=== PATIENT | female | born 1945 | race Two or more races ===

== ENCOUNTER → 2020-12-19 | Outpatient (CLI) | payer MEDICARE, MEDICAID ==
[~2020-12-19] MED LIST: APIX5TAB PO; ATOR-2 PO; ATOR80TA PO; FLUO10TA PO; FOLI0.8T7 PO; GABA100C PO; HYDR-3342 PO; OMEP-110 PO; OXYC5TAB98 PO; PIOG15TA66 PO; PIOG15TA69 PO; SILV50CR TP; TRAM50TA2 PO; WARF2.5T32 PO
[2020-12-19 09:12] LABS: BASOPHILS % (AUTO) 1 % (0-1); EOSINOPHILS % (AUTO) 3 % (1-7); LYMPHOCYTES % (AUTO) 28 % (22-44); MEAN CORPUSCULAR HEMOGLOBIN 32.5 pg (27.0-34.8); MEAN CORPUSCULAR HGB CONC 33.8 g/dL (32.4-35.8); MEAN PLATELET VOLUME 7.8 fL (7.4-10.4); MONOCYTES % (AUTO) 11 % (2-9); NEUTROPHILS % (AUTO) 57 % (42-75); PLATELET COUNT 191 x10^3/uL (130-400); RED BLOOD COUNT 3.09 x10^6/uL (3.82-5.3); RED CELL DISTRIBUTION WIDTH 14.4 % (9.6-15.2)
[2020-12-19 09:22] LABS: INTERNATIONAL NORMALIZED RATIO 1.04 (0.93-1.1); PROTHROMBIN TIME 11.1 Seconds (9.6-11.5)
[2020-12-19 10:02] LABS: ALBUMIN 3.8 g/dL (3.4-5.0); ANION GAP 7 mmol/L (5-15); CALCIUM 8.6 mg/dL (8.5-10.1); CHLORIDE 98 mmol/L (98-107)
[2020-12-19 10:15] LABS: ALANINE AMINOTRANSFERASE 23 U/L (12-78); ALKALINE PHOSPHATASE 203 U/L (45-117); BILIRUBIN,TOTAL 0.5 mg/dL (0.2-1.0); CREATININE 4.01 mg/dL (0.55-1.02); TOTAL PROTEIN 7.5 g/dL (6.4-8.2)
== END | disposition home or self-care (01) ==
LOC: STAR 07:44 → MERGE 08:00
PROVIDERS: ATTEND Surgery
DX: Z01.818 Encounter for other preprocedural examination (principal); Z01.812 Encounter for preprocedural laboratory examination; I21.09 ST elevation (STEMI) myocardial infarction involving other coronary artery of anterior wall; Z20.822 Contact with and (suspected) exposure to COVID-19
CPT/HCPCS: 36415; 80053; 85025; 85610; 85730; 93005; U0003; U0005

== ENCOUNTER 2020-12-23 09:53 | Day surgery (SDC) | payer MEDICARE, MEDICAID ==
[~2020-12-23] VITALS: Ht 152.4 cm; Wt 61.4 kg
[2020-12-23 10:41] VITALS: BP 136/74
[2020-12-23] MEDS ORDERED: SODIUM CHLORIDE 0.9% 1,000 ML IV SCH (11:00)
[2020-12-23] MEDS ORDERED: CHLORHEXIDINE 15 ML UDC PO ONE (11:00)
[2020-12-23 11:38] LABS: ANION GAP 7 mmol/L (5-15); CALCIUM 8.7 mg/dL (8.5-10.1); CHLORIDE 99 mmol/L (98-107); CREATININE 2.95 mg/dL (0.55-1.02)
[2020-12-23] MEDS ORDERED: FENTANYL PF 100 MCG/2ML ONE (11:40)
[2020-12-23] MEDS ORDERED: MIDAZOLAM 1 MG/ML, 2ML ONE (11:40)
[2020-12-23] MEDS ORDERED: EPINEPHRINE 1 MG/ML, 1ML ONE (12:29)
[2020-12-23] MEDS ORDERED: BUPIVACAINE/PF 0.5% ONE (12:29)
[2020-12-23] MEDS ORDERED: LABETALOL 5MG/ML, 20ML IV PRN (14:30)
[2020-12-23] MEDS ORDERED: hydrALAzine 20 MG/ML, 1ML IV PRN (14:30)
[2020-12-23] MEDS ORDERED: ONDANSETRON 2MG/ML, 2ML IVPush PRN (14:30)
[2020-12-23] MEDS ORDERED: FENTANYL PF 100 MCG/2ML IV PRN (14:30)
[2020-12-23] MEDS ORDERED: ACETAMINOPHEN 325 MG TABLET PO PRN (14:30)
[2020-12-23] MEDS ORDERED: HYDROmorphone 1 MG/ML, 1ML INJ IVPush PRN (14:30)
== END 2020-12-23 15:15 | disposition home or self-care (01) ==
LOC: OUT 09:53
PROVIDERS: ATTEND Surgery
DX: I12.0 Hypertensive chronic kidney disease with stage 5 chronic kidney disease or end stage renal disease (principal); N18.6 End stage renal disease; E78.5 Hyperlipidemia, unspecified; Z79.01 Long term (current) use of anticoagulants; Z79.891 Long term (current) use of opiate analgesic; Z79.899 Other long term (current) drug therapy; Z86.718 Personal history of other venous thrombosis and embolism; Z87.891 Personal history of nicotine dependence; Z99.2 Dependence on renal dialysis; Z98.890 Other specified postprocedural states; Z82.49 Family history of ischemic heart disease and other diseases of the circulatory system
CPT/HCPCS: 49324; 80048; 82962; C1750; J0171; J2250; J3010; J7030

== ENCOUNTER 2021-02-24 10:56 | Outpatient (CLI) | payer MEDICARE, MEDICAID ==
[~2021-02-24 10:56] MED LIST changes: +REGADENOSON 0.4 MG/5 ML SYRINGE ONE
== END 2021-02-24 23:59 | disposition home or self-care (01) ==
LOC: CFH 10:56
PROVIDERS: ATTEND Nurse Practitioner Family
DX: I65.23 Occlusion and stenosis of bilateral carotid arteries (principal); I21.29 ST elevation (STEMI) myocardial infarction involving other sites; I25.9 Chronic ischemic heart disease, unspecified; I25.10 Atherosclerotic heart disease of native coronary artery without angina pectoris
CPT/HCPCS: 78452; 93017; 93880; A9502; J2785

== ENCOUNTER 2021-03-08 05:49 | Observation (INO) | payer MEDICARE, MEDICAID ==
[~2021-03-08] VITALS: Ht 154.9 cm; Wt 68.8 kg
[~2021-03-08 05:49] MED LIST changes: -REGADENOSON 0.4 MG/5 ML SYRINGE ONE
[2021-03-08 06:16] VITALS: BP 150/70
[2021-03-08] MEDS ORDERED: CHLORHEXIDINE 15 ML UDC PO ONE (06:30)
[2021-03-08] MEDS ORDERED: SODIUM CHLORIDE 0.9% 1,000 ML IV SCH (06:30)
[2021-03-08] MEDS ORDERED: ASPI-963 PO (06:39)
[2021-03-08] MEDS ORDERED: SEMA0.25 SQ (06:46)
[2021-03-08 06:57] LABS: BASOPHILS % (AUTO) 3 % (0-1); EOSINOPHILS % (AUTO) 7 % (1-7); LYMPHOCYTES % (AUTO) 24 % (22-44); MEAN CORPUSCULAR HEMOGLOBIN 32.3 pg (27.0-34.8); MEAN CORPUSCULAR HGB CONC 34.4 g/dL (32.4-35.8); MEAN PLATELET VOLUME 7.3 fL (7.4-10.4); MONOCYTES % (AUTO) 10 % (2-9); NEUTROPHILS % (AUTO) 56 % (42-75); PLATELET COUNT 253 x10^3/uL (130-400); RED BLOOD COUNT 3.02 x10^6/uL (3.82-5.3); RED CELL DISTRIBUTION WIDTH 15.5 % (9.6-15.2)
[2021-03-08] MEDS ORDERED: HEPARIN 1,000 UNITS/ML, 10ML ONE (06:59)
[2021-03-08] MEDS ORDERED: PROTAMINE SULFATE 10 MG/ML, 5ML ONE (06:59)
[2021-03-08] MEDS ORDERED: LIDOCAINE/PF 1%, 30ML ONE (06:59)
[2021-03-08] MEDS ORDERED: THROMBIN 20,000 UNIT VIAL TP ONE (06:59)
[2021-03-08 07:06] LABS: ALANINE AMINOTRANSFERASE 17 U/L (12-78); ALBUMIN 3.2 g/dL (3.4-5.0); ANION GAP 10 mmol/L (5-15); CALCIUM 8.3 mg/dL (8.5-10.1); CHLORIDE 99 mmol/L (98-107)
[2021-03-08 07:09] LABS: ALKALINE PHOSPHATASE 158 U/L (45-117); BILIRUBIN,TOTAL 0.4 mg/dL (0.2-1.0); CREATININE 3.94 mg/dL (0.55-1.02); TOTAL PROTEIN 6.7 g/dL (6.4-8.2)
[2021-03-08] MEDS ORDERED: EPINEPHRINE 1 MG/ML, 1ML ONE (07:18)
[2021-03-08] MEDS ORDERED: BUPIVACAINE/PF 0.5% ONE (07:18)
[2021-03-08] MEDS ORDERED: FENTANYL PF 250 MCG/5ML ONE (07:36)
[2021-03-08] MEDS ORDERED: EPHEDRINE 50 MG/ML, 1ML ONE (07:44)
[2021-03-08] MEDS ORDERED: MIDAZOLAM 1 MG/ML, 2ML ONE (08:07)
[2021-03-08] MEDS ORDERED: BUPIVACAINE/PF-EPI 0.5% 1:200K INFIL ONE (08:20)
[2021-03-08] MEDS ORDERED: HEPARIN 1,000 UNITS/ML, 10ML IV ONE (08:20)
[2021-03-08] MEDS ORDERED: VASOPRESSIN 20 UNIT/ML, 1ML ONE (08:29)
[2021-03-08] MEDS ORDERED: ONDANSETRON 2MG/ML, 2ML ONE (09:52)
[2021-03-08] MEDS ORDERED: GLYCOPYRROLATE 0.2MG/1ML, 5ML ONE (09:52)
[2021-03-08] MEDS ORDERED: CEFAZOLIN 1,000 MG ONE (09:52)
[2021-03-08] MEDS ORDERED: NEOSTIGMINE 1 MG/ML, 10ML ONE (09:52)
[2021-03-08] MEDS ORDERED: DEXAMETHASONE 4 MG/ML, 1ML ONE (09:52)
[2021-03-08] MEDS ORDERED: SUCCINYLCHOLINE 20 MG/ML, 10ML ONE (09:52)
[2021-03-08] MEDS ORDERED: ROCURONIUM 10MG/ML,5ML ONE (09:52)
[2021-03-08] MEDS ORDERED: PROPOFOL 10 MG/ML, 20ML ONE (09:52)
[2021-03-08] MEDS ORDERED: MEPERIDINE/PF 25MG/0.5ML IVPush PRN (10:00)
[2021-03-08] MEDS ORDERED: OXYcodone 5 MG/5 ML ORAL.SOL UDC PO PRN (10:00)
[2021-03-08] MEDS ORDERED: HYDROmorphone 1 MG/ML, 1ML INJ IVPush PRN (10:00)
[2021-03-08] MEDS ORDERED: PROMETHAZINE 25 MG/ML, 1ML IVPush PRN (10:00)
[2021-03-08] MEDS ORDERED: HALOPERIDOL 5 MG/ML IV PRN (10:00)
[2021-03-08] MEDS ORDERED: DIPHENHYDRAMINE 50 MG/ML, 1ML IVPush PRN (10:00)
[2021-03-08] MEDS ORDERED: LABETALOL 5MG/ML, 20ML IV PRN (10:00)
[2021-03-08] MEDS ORDERED: hydrALAzine 20 MG/ML, 1ML IV PRN (10:00)
[2021-03-08] MEDS ORDERED: SUGAMMADEX 200 MG/2 ML IVPush ONE (10:04)
[2021-03-08] MEDS ORDERED: HYDROcodone/APAP 5/325 TABLET PO PRN (10:30)
[2021-03-08] MEDS ORDERED: ONDANSETRON 2MG/ML, 2ML IVPush PRN (10:30)
[2021-03-08] MEDS ORDERED: ACETAMINOPHEN 325 MG TABLET PO PRN (10:30)
[2021-03-08] MEDS: INSULIN REGULAR 100 UNITS/ML, 3ML VIAL SQ-INSULIN SCH ×3 (11:00→20:58)
[2021-03-08] MEDS ORDERED: FENTANYL PF 100 MCG/2ML ONE (11:19)
[2021-03-08] MEDS: FENTANYL PF 100 MCG/2ML IV PRN ×2 (11:21→11:33)
[2021-03-08] MEDS ORDERED: ENOXAPARIN 30 MG/0.3 ML SQ SCH ×2 (16:00→16:23)
[2021-03-08] MEDS: CEFAZOLIN PMX 1GM/50ML 50 ML IVPB SCH (18:40)
[2021-03-08 19:54] VITALS: BP 120/64
[2021-03-08] MEDS: SODIUM CHLORIDE FLUSH 10ML SYR IVF SCH (20:52)
[2021-03-08] MEDS ORDERED: ATORVASTATIN 80 MG TABLET PO SCH (21:00)
[2021-03-09 01:21] VITALS: BP 90/37
[2021-03-09 01:32] VITALS: BP 126/65
[2021-03-09] MEDS: CEFAZOLIN PMX 1GM/50ML 50 ML IVPB SCH ×2 (01:39→12:51)
[2021-03-09 04:27] VITALS: BP 118/62
[2021-03-09] MEDS: INSULIN REGULAR 100 UNITS/ML, 3ML VIAL SQ-INSULIN SCH ×2 (06:13→12:50)
[2021-03-09] MEDS ORDERED: OMEPRAZOLE 20 MG CAPSULE.DR PO SCH (07:00)
[2021-03-09 07:28] VITALS: BP 118/62
[2021-03-09] MEDS ORDERED: APIXABAN 5 MG TABLET PO SCH (09:00)
[2021-03-09] MEDS ORDERED: FLUOXETINE 10 MG CAP PO SCH (09:00)
[2021-03-09] MEDS ORDERED: PIOGLITAZONE 15 MG TABLET PO SCH (09:00)
[2021-03-09] MEDS ORDERED: MULTIVITS,STRESS FORMULA 1 TABLET PO SCH (09:00)
[2021-03-09] MEDS ORDERED: ASPIRIN 81 MG TABLET EC PO SCH (09:00)
[2021-03-09] MEDS ORDERED: GABAPENTIN 100 MG CAPSULE PO SCH (09:00)
[2021-03-09] MEDS ORDERED: HYDR-2214 PO (09:31)
[2021-03-09] MEDS: SODIUM CHLORIDE FLUSH 10ML SYR IVF SCH (12:16)
[2021-03-09 13:25] VITALS: BP 116/52
== END 2021-03-09 15:50 | disposition home or self-care (01) ==
LOC: OUT 05:49 → ORIP 10:09 → INTOOBSV 10:09 → 4NE 13:28
PROVIDERS: ADMIT Surgery; ATTEND Surgery
DX: I65.22 Occlusion and stenosis of left carotid artery (principal); Z20.822 Contact with and (suspected) exposure to COVID-19; T81.31XA Disruption of external operation (surgical) wound, not elsewhere classified, initial encounter; I12.0 Hypertensive chronic kidney disease with stage 5 chronic kidney disease or end stage renal disease; E11.22 Type 2 diabetes mellitus with diabetic chronic kidney disease; N18.6 End stage renal disease; D63.1 Anemia in chronic kidney disease; I82.C11 Acute embolism and thrombosis of right internal jugular vein; I25.10 Atherosclerotic heart disease of native coronary artery without angina pectoris; E78.5 Hyperlipidemia, unspecified; E88.09 Other disorders of plasma-protein metabolism, not elsewhere classified; K21.9 Gastro-esophageal reflux disease without esophagitis; Z90.710 Acquired absence of both cervix and uterus; Z99.2 Dependence on renal dialysis; Z79.899 Other long term (current) drug therapy
CPT/HCPCS: 36415; 71045; 80053; 82962; 85025; 86850; 86900; 87635; 90935; 93005; 96365; 96366; 96372; G0378; J0171; J0690; J1100; J1644; J1650; J1815; J2250; J2405; J2704; J2710; J2720; J3010; C1781; J0330; J7030

== ENCOUNTER 2021-03-14 15:28 | Emergency (ER) | payer MEDICAID, MEDICARE ==
[~2021-03-14] VITALS: Ht 154.9 cm; Wt 62.0 kg
[~2021-03-14 15:28] MED LIST changes: +ASPI-963 PO; +HYDR-2214 PO; +SEMA0.25 SQ
[2021-03-14 16:30] LABS: BASOPHILS % (AUTO) 1 % (0-1); EOSINOPHILS % (AUTO) 6 % (1-7); LYMPHOCYTES % (AUTO) 22 % (22-44); MEAN CORPUSCULAR HEMOGLOBIN 32.1 pg (27.0-34.8); MEAN CORPUSCULAR HGB CONC 34.1 g/dL (32.4-35.8); MEAN PLATELET VOLUME 7.5 fL (7.4-10.4); MONOCYTES % (AUTO) 9 % (2-9); NEUTROPHILS % (AUTO) 62 % (42-75); PLATELET COUNT 271 x10^3/uL (130-400); RED BLOOD COUNT 2.95 x10^6/uL (3.82-5.3); RED CELL DISTRIBUTION WIDTH 15.7 % (9.6-15.2)
[2021-03-14 16:37] LABS: ALANINE AMINOTRANSFERASE 12 U/L (12-78); ANION GAP 7 mmol/L (5-15); CALCIUM 8.3 mg/dL (8.5-10.1); CHLORIDE 101 mmol/L (98-107); CREATININE 3.34 mg/dL (0.55-1.02)
[2021-03-14 16:41] LABS: ALKALINE PHOSPHATASE 164 U/L (45-117); BILIRUBIN,TOTAL 0.3 mg/dL (0.2-1.0); TOTAL PROTEIN 6.9 g/dL (6.4-8.2); TROPONIN I < 0.015 ng/mL (0.000-0.045)
[2021-03-14 18:10] VITALS: BP 172/78
--- NOTE | 2021-03-14 18:10 | NUR ---
PT REVITALED. DAUGHTER AT , STATES PT ONLY TOOK 1 DOSE OF HER HTN MEDS TODAY.
--- NOTE | 2021-03-14 18:11 | NUR ---
AMBULATORY BACK TO LOBBY C STEADY GAIT.
--- NOTE | 2021-03-14 19:30 | NUR ---
pt to room from lobby
--- NOTE | 2021-03-14 19:30 | NUR ---
FIRST CONTACT: DAUGHTER IN ROOM TO TRANSLATE. PATIENT COMPLAINING OF PERSISTANT HEADACHE NOT RELIEVED BY ANYTHING.
[2021-03-14 20:13] LABS: MICROSCOPIC AUTO
--- NOTE | 2021-03-14 20:28 | NUR ---
Patient given discharge instructions and they have confirmed that they understand the instructions. Patient ambulatory with steady gait. NAD, all questions answered appropriately, denies additional needs at this time. No personal belongings left in room after discharge.
== END 2021-03-14 20:32 | disposition home or self-care (01) ==
LOC: ED 20:25
DX: G44.219 Episodic tension-type headache, not intractable (principal); I12.0 Hypertensive chronic kidney disease with stage 5 chronic kidney disease or end stage renal disease; E11.22 Type 2 diabetes mellitus with diabetic chronic kidney disease; N18.6 End stage renal disease; Z99.2 Dependence on renal dialysis
CPT/HCPCS: 36415; 70450; 71045; 80053; 81001; 84484; 85025; 93005; 99285